=== PATIENT | male | born 1980 | race Caucasian/White ===

== ENCOUNTER → 2020-01-25 | Outpatient (CLI) | payer BC | END | disposition home or self-care (01) | LOC: LAB 09:23 | PROVIDERS: ATTEND Urology | DX: Z01.818 Encounter for other preprocedural examination (principal); N20.0 Calculus of kidney; Z79.01 Long term (current) use of anticoagulants | CPT/HCPCS: 93005 ==

== ENCOUNTER → 2020-01-31 | Outpatient (CLI) | payer BC | END | disposition home or self-care (01) | LOC: RAD 08:07 | PROVIDERS: ATTEND Urology | DX: N20.0 Calculus of kidney (principal); I87.8 Other specified disorders of veins | CPT/HCPCS: 74018 ==